=== PATIENT | male | born 1955 | race Hispanic/Latino ===

== ENCOUNTER 2017-12-24 17:41 | Inpatient (IN) | payer OTHER ==
--- NOTE | 2017-12-24 18:00 | Emergency Department Report ---
ED Abdominal Pain HPI - General Chief Complaint: Abdominal Pain Stated Complaint: ABD PAIN Time Seen by Provider: 12/24/17 18:00 Source: patient, EMS Mode of arrival: Stretcher Limitations: No Limitations - History of Present Illness Initial Comments: Patient started having sudden onset of abdominal pain since 4:00 this morning. MD Complaint: abdominal pain -: Sudden Location: diffuse Radiation: none Migration to: no migration Severity scale (0 -10): 10 Quality: sharp Consistency: constant Improves With: nothing Worsens With: nothing Associated Symptoms: nausea, vomiting - Related Data Home Medications Medication Instructions Recorded Confirmed Last Taken Hydrochlorothiazide [HCTZ] 25 mg PO QDAY 03/18/15 03/18/15 Unknown Hydroxyzine HCl [hydrOXYzine] 150 mg PO QHS 03/18/15 03/18/15 Unknown Imipramine [Tofranil] 150 mg PO QHS 03/18/15 03/18/15 Unknown Perphenazine 24 mg PO QHS 03/18/15 03/18/15 Unknown Simvastatin [Zocor TAB] 20 mg PO QHS 03/18/15 03/18/15 Unknown Temazepam [Restoril] 30 mg PO QHS PRN 03/18/15 03/18/15 Unknown glipiZIDE [Glucotrol] 10 mg PO BID 03/18/15 03/18/15 Unknown metFORMIN [Glucophage] 250 mg PO QDAY 03/18/15 03/18/15 Unknown Allergies Allergy/AdvReac Type Severity Reaction Status Date / Time esomeprazole magnesium Allergy Unknown Verified 12/24/17 18:10 [From Nexium] ibuprofen [From Motrin] Allergy Anaphylaxis Verified 12/24/17 18:10 Macrolide Antibiotics Allergy Unknown Verified 12/24/17 18:10 metformin HCl Allergy Unknown Verified 12/24/17 18:10 [From Glucophage] aspirin AdvReac Nausea Verified 12/24/17 18:10 cimetidine [From Tagamet] AdvReac Itching Verified 12/24/17 18:10 cimetidine HCl [From Tagamet] AdvReac Itching Verified 12/24/17 18:10 mirtazapine [From Remeron] AdvReac Itching Verified 12/24/17 18:10 nefazodone HCl [From Serzone] AdvReac Itching Verified 12/24/17 18:10 omeprazole [From Prilosec] AdvReac Unknown Verified 12/24/17 18:10 omeprazole magnesium AdvReac Unknown Verified 12/24/17 18:10 [From Prilosec] pantoprazole sodium AdvReac Nausea Verified 12/24/17 18:10 [From Protonix] paroxetine HCl [From Paxil] AdvReac Nausea Verified 12/24/17 18:10 quetiapine fumarate AdvReac Itching Verified 12/24/17 18:10 [From Seroquel] rabeprazole sodium AdvReac Unknown Verified 12/24/17 18:10 [From Aciphex] sertraline HCl [From Zoloft] AdvReac Itching Verified 12/24/17 18:10 Sulfa (Sulfonamide AdvReac Nausea Verified 12/24/17 18:10 Antibiotics) trazodone HCl [From Desyrel] AdvReac Itching Verified 12/24/17 18:10 venlafaxine HCl AdvReac Itching Verified 12/24/17 18:10 [From Effexor] ED Review of Systems ROS: Stated complaint: ABD PAIN Other details as noted in HPI Comment: All other systems reviewed and negative Constitutional: denies: chills, fever Eyes: denies: vision change ENT: denies: ear pain, hearing loss Respiratory: shortness of breath Cardiovascular: denies: chest pain, palpitations Endocrine: no symptoms reported Gastrointestinal: abdominal pain, nausea, vomiting. denies: diarrhea Genitourinary: denies: dysuria, frequency Musculoskeletal: denies: back pain Skin: denies: rash, change in color Neurological: denies: headache, numbness, paresthesias Psychiatric: denies: anxiety, depression Hematological/Lymphatic: denies: easy bleeding, easy bruising ED Past Medical Hx - Past Medical History Hx Hypertension: Yes Hx Diabetes: Yes Hx Kidney Stones: Yes Hx Psychiatric Treatment: Yes (DEPRESSION) Additional medical history: HIGH CHOLESTEROL - Surgical History Hx Cholecystectomy: Yes Additional Surgical History: HERNIA REPAIR X 5 - Social History Smoking Status: Current Every Day Smoker Substance Use Type: Alcohol - Medications Home Medications: Home Medications Medication Instructions Recorded Confirmed Last Taken Type Hydrochlorothiazide [HCTZ] 25 mg PO QDAY 03/18/15 03/18/15 Unknown History Hydroxyzine HCl [hydrOXYzine] 150 mg PO QHS 03/18/15 03/18/15 Unknown History Imipramine [Tofranil] 150 mg PO QHS 03/18/15 03/18/15 Unknown History Perphenazine 24 mg PO QHS 03/18/15 03/18/15 Unknown History Simvastatin [Zocor TAB] 20 mg PO QHS 03/18/15 03/18/15 Unknown History Temazepam [Restoril] 30 mg PO QHS PRN 03/18/15 03/18/15 Unknown History glipiZIDE [Glucotrol] 10 mg PO BID 03/18/15 03/18/15 Unknown History metFORMIN [Glucophage] 250 mg PO QDAY 03/18/15 03/18/15 Unknown History ED Physical Exam - General Limitations: No Limitations General appearance: alert, in distress - Head Head exam: Present: atraumatic, normocephalic, normal inspection - Eye Eye exam: Present: normal appearance, PERRL, EOMI Pupils: Present: normal accommodation - ENT ENT exam: Present: normal exam, normal orophraynx, mucous membranes dry - Neck Neck exam: Present: normal inspection, full ROM. Absent: tenderness - Respiratory Respiratory exam: Present: normal lung sounds bilaterally. Absent: chest wall tenderness - Cardiovascular Cardiovascular Exam: Present: regular rate, normal rhythm, normal heart sounds - GI/Abdominal GI/Abdominal exam: Present: distended, tenderness, guarding, rebound, rigid, hyperactive bowel sounds - Rectal Rectal exam: Present: deferred - Extremities Exam Extremities exam: Present: normal inspection, full ROM, normal capillary refill. Absent: tenderness - Back Exam Back exam: Present: normal inspection, full ROM - Neurological Exam Neurological exam: Present: alert, oriented X3, CN II-XII intact - Psychiatric Psychiatric exam: Present: normal affect, normal mood - Skin Skin exam: Present: warm, dry, intact, normal color. Absent: rash ED Course Vital Signs 12/24/17 12/24/17 12/24/17 17:45 18:00 18:16 Temperature 97.3 F L Pulse Rate 98 H 94 H Respiratory 22 29 H Rate Blood Pressure 148/86 Blood Pressure [Left] O2 Sat by Pulse 95 100 92 Oximetry 12/24/17 12/24/17 12/24/17 18:27 18:30 18:46 Temperature Pulse Rate 94 H 90 Respiratory 16 16 18 Rate Blood Pressure 146/94 Blood Pressure [Left] O2 Sat by Pulse 90 89 Oximetry 12/24/17 12/24/17 12/24/17 19:00 19:05 19:16 Temperature 98.4 F Pulse Rate 90 91 H 90 Respiratory 17 22 15 Rate Blood Pressure 169/94 169/94 Blood Pressure 169/94 [Left] O2 Sat by Pulse 88 95 90 Oximetry 12/24/17 12/24/17 12/24/17 19:30 19:46 20:00 Temperature Pulse Rate 92 H 94 H 92 H Respiratory 14 18 16 Rate Blood Pressure 164/97 164/97 160/96 Blood Pressure [Left] O2 Sat by Pulse 92 91 90 Oximetry 12/24/17 12/24/17 12/24/17 20:16 20:42 20:46 Temperature Pulse Rate 92 H 94 H 93 H Respiratory 17 17 36 H Rate Blood Pressure 160/96 160/96 160/96 Blood Pressure [Left] O2 Sat by Pulse 92 94 93 Oximetry 12/24/17 12/24/17 12/24/17 21:00 21:10 21:16 Temperature Pulse Rate 93 H 103 H Respiratory 17 18 16 Rate Blood Pressure 156/87 156/87 Blood Pressure [Left] O2 Sat by Pulse 92 95 Oximetry 12/24/17 12/24/17 12/24/17 21:30 21:40 21:46 Temperature Pulse Rate 97 H 95 H Respiratory 17 18 15 Rate Blood Pressure 170/107 170/107 Blood Pressure [Left] O2 Sat by Pulse 91 91 Oximetry 12/24/17 12/24/17 12/24/17 22:00 22:16 22:30 Temperature Pulse Rate 97 H 97 H 98 H Respiratory 17 13 18 Rate Blood Pressure 178/103 178/103 Blood Pressure [Left] O2 Sat by Pulse 91 91 89 Oximetry 12/24/17 22:46 Temperature Pulse Rate 96 H Respiratory 14 Rate Blood Pressure 164/92 Blood Pressure [Left] O2 Sat by Pulse 92 Oximetry - Reevaluation(s) Reevaluation #1: 12/24/17 22:04 I consulted the general surgeon on-call Dr. Buchanan. He wants patient to be admitted by the hospitalist, he wants an NG tube inserted and placed on low intermittent suction, and he will see the patient tomorrow morning. Patient's care was discussed with the [place] general surgeon fashion director party plan sales Dr Montemayor. He authorized admitting the patient at [facility] for further evaluation and management. Patient will be admitted to the hospital by Dr. Larson the hospitalist on-call for further evaluation and management. ED Medical Decision Making - Lab Data Result diagrams: 12/24/17 18:18 12/24/17 18:18 - EKG Data -: EKG Interpreted by Me EKG shows normal: sinus rhythm (93) Rate: normal - EKG Data When compared to previous EKG there are: previous EKG unavailable Interpretation: nonspecific ST-T wave kurt - Radiology Data Radiology results: report reviewed, image reviewed - Medical Decision Making Abdominal Pain. Nausea and Vomiting. Small bowel obstruction. Critical care attestation.: If time is entered above; I have spent that time in minutes in the direct care of this critically ill patient, excluding procedure time. ED Disposition Clinical Impression: Small bowel obstruction Nausea and vomiting Qualifiers: Vomiting type: unspecified Vomiting Intractability: non-intractable Qualified Code(s): R11.2 - Nausea with vomiting, unspecified Abdominal pain Qualifiers: Abdominal location: generalized Qualified Code(s): R10.84 - Generalized abdominal pain Leukocytosis, unspecified Qualifiers: Leukocytosis type: unspecified Qualified Code(s): D72.829 - Elevated white blood cell count, unspecified Disposition: -09 OP ADMIT IP TO THIS HOSP Is pt being admited?: Yes Does the pt Need Aspirin: No Condition: Stable Referrals: JESSICA YADAV [Other] - 3-5 Days Time of Disposition: 22:30
[2017-12-24] MEDS ORDERED: NACL 0.9% 1000 ML 1,000 ML IV ONE (18:07)
[2017-12-24] MEDS ORDERED: REGLAN IV ONE (18:08)
[2017-12-24] MEDS ORDERED: DILAUDID ONE ×2 (18:12→21:03)
[2017-12-24] MEDS ORDERED: DILAUDID IV ONE ×2 (18:13→21:04)
[2017-12-24 18:30] LABS: Hematocrit 54.3 % (35.5-45.6); Hemoglobin 18.2 gm/dl (11.8-15.2); Mean Corpuscular HGB Conc 34 % (32-34); Mean Corpuscular Hemoglobin 30 pg (28-32); Mean Corpuscular Volume 90 fl (84-94); Platelet Count 211 K/mm3 (140-440); Red Blood Count 6.01 M/mm3 (3.65-5.03); Red Cell Distribution Width 14.3 % (13.2-15.2)
[2017-12-24 18:55] LABS: Alanine Aminotransferase 23 units/L (7-56); Albumin 4.3 g/dL (3.9-5); BUN/Creatinine Ratio 11; Blood Urea Nitrogen 10 mg/dL (9-20); Calcium 10.2 mg/dL (8.4-10.2); Hemolysis Index 13; Lipase 71 units/L (13-60)
[2017-12-24 19:06] LABS: INR 0.93 (0.87-1.13); Partial Thromboplastin Time 30.1 Sec. (24.2-36.6)
--- NOTE | 2017-12-24 19:14 | XRay Report ---
FINAL REPORT EXAM: XR CHEST 1V AP HISTORY: shortness of breath TECHNIQUE: AP portable view of the chest PRIORS: None. FINDINGS: Lines, tubes, and devices: N/A Lungs and pleura: Trachea is normal in position. Lungs are clear of infiltrate, pleural effusion, vascular congestion, or pneumothorax. Cardiomediastinal silhouette: Cardiac and mediastinal silhouettes are unremarkable. Other: Bony structures are intact. IMPRESSION: No acute cardiopulmonary process seen.
--- NOTE | 2017-12-24 19:15 | XRay Report ---
FINAL REPORT EXAM: XR ABDOMEN 1V AP HISTORY: abdominal pain TECHNIQUE: Supine views of the abdomen PRIORS: None. FINDINGS: The bowel gas pattern is nonspecific. No free air is identified. Moderate stool is present in the ascending colon. Mild gaseous distention of small bowel in the right upper quadrant is noted of uncertain significance. This may be due to mild ileus. Soft tissues have no evidence for mass shadows or calcifications. Surgical clips are present in the right upper quadrant. Surgical suture wires are present in the left groin. The bony structures are intact. IMPRESSION: Mild gaseous distention of small bowel in the right upper quadrant which is doubt of uncertain significance. This may be due to mild ileus.
[2017-12-24 19:45] LABS: Band Neutrophils # (Manual) 0.2 K/mm3; Basophils % (Manual) 0 % (0.0-1.8); Eosinophils % (Manual) 0 % (0.0-4.3); Total Cells Counted 100
[2017-12-24 19:46] LABS: Anisocytosis 1+; Platelet Estimate Consistent w Auto
--- NOTE | 2017-12-24 21:13 | Cat Scan Report ---
FINAL REPORT EXAM: CT ABDOMEN PELVIS W CON HISTORY: abdominal pain TECHNIQUE: Standard enhanced CT of the abdomen and pelvis. Coronal and sagittal reconstruction was also performed. Delayed imaging through the kidneys and bladder was obtained. Contrast: 100 mL Omnipaque 300 given IV. Gastroview given as oral. PRIORS: None. FINDINGS: There is marked distention of proximal small bowel and stomach which are all fluid-filled and contain air-fluid levels. Small bowel measures up to 5.2 cm in diameter. No wall thickening is identified. A gradual transition zone is present in the anterior left upper quadrant (axial image 117, series 2) within the mid small bowel. No mass or inflammatory process is seen in this region. Within the abdomen, the liver, spleen, pancreas, adrenal glands, and kidneys are unremarkable. Gallbladder has been surgically removed. No evidence for retroperitoneal or pelvic lymphadenopathy is seen. No soft tissue mass, fluid collection, inflammatory change, or free air is seen within the abdomen or pelvis. The appendix is normal. Moderate calcification of the aorta is seen. Within the pelvis, the bladder is unremarkable. The prostate is normal. No evidence for mass or lymphadenopathy is seen in the pelvis. Sigmoid diverticulosis is noted. Surgical clips in the left groin suggests inguinal hernia repair. Images through the upper abdomen include the lung bases which demonstrates bibasilar atelectasis, left greater than right. A small hiatal hernia is noted. Bony structures show no focal abnormalities and are intact. IMPRESSION: 1. marked distention of proximal small bowel and stomach, all of which are fluid-filled and contain air-fluid levels. There is a gradual transition zone in the mid small bowel within the left anterior upper abdomen. However, no etiology is noted. No inflammatory process or obstructing mass is seen. 2. Bibasilar atelectasis 3. Small hiatal hernia
--- NOTE | 2017-12-24 23:20 | XRay Report ---
FINAL REPORT PROCEDURE: XR ABDOMEN 1V AP TECHNIQUE: Abdominal radiograph, single supine AP view. HISTORY: Post NG tube placement COMPARISON: No prior studies are available for comparison. FINDINGS: Bowel gas pattern:A few moderate to severely dilated loops of small bowel are noted in the right abdomen. Stomach is distended with air. Residual contrast is noted in bilateral collecting systems. Mild degree residual stool is noted in the right colon. Masses or calcifications:None. Bony structures:No significant abnormality. Other:Nasogastric tube is terminating at the gastroesophageal junction.. Surgical clips are noted in the right upper quadrant consistent with prior cholecystectomy. IMPRESSION: Nasogastric tube is terminating at the gastroesophageal junction. Dilated loops of small bowel are consistent with small bowel obstruction.
[2017-12-24] MEDS ORDERED: MORPHINE IV PRN (23:25)
[2017-12-24] MEDS ORDERED: ZOFRAN IV PRN (23:26)
[2017-12-24] MEDS ORDERED: TYLENOL PR PRN (23:29)
[2017-12-24] MEDS ORDERED: D50W (25GM) Syringe IV PRN (23:34)
[2017-12-24] MEDS ORDERED: NACL 0.9% 1000 ML 1,000 ML IV SCH (23:45)
[2017-12-24] MEDS ORDERED: FLAGYL 500 MG/100 ML 500 MG/100 ML BAG IV SCH (23:45)
[2017-12-25] MEDS ORDERED: APRESOLINE IV PRN (01:14)
[2017-12-25] MEDS ORDERED: ATARAX PO ONE (01:17)
[2017-12-25] MEDS ORDERED: TRILAFON PO ONE (01:21)
[2017-12-25] MEDS ORDERED: PRAVACHOL PO ONE (01:23)
[2017-12-25] MEDS: HumuLIN R SUB-Q SCH ×6 (02:14→22:57)
[2017-12-25] MEDS: RESTORIL PO PRN (02:42)
[2017-12-25] MEDS ORDERED: PROVENTIL IH PRN (04:16)
[2017-12-25] MEDS: cefTRIAXone 1 GM in NACL 0.9% 20 ML IV SCH (10:00)
[2017-12-25] MEDS: FLAGYL 500 MG/100 ML 500 MG/100 ML BAG IV SCH ×2 (10:07→20:06)
[2017-12-25 12:16] LABS: Bilirubin,Urine NEG (Negative); Blood,Urine SM (Negative); Color,Urine Yellow (Yellow); Mucus,Urine FEW /HPF; Urobilinogen,Urine < 2.0 mg/dL (<2.0)
[2017-12-25] MEDS ORDERED: NACL 0.9% 1000 ML 1,000 ML IV ONE (12:31)
--- NOTE | 2017-12-25 12:32 | Consultation ---
History of Present Illness Consult date: 12/25/17 Reason for consult: abdominal pain Requesting physician: NIKKI LOUIS Chief complaint: Abdominal pain,N/V - History of present illness History of present illness: 62yo M with recent diagnosis of left lung cancer suddenly developed abdominal pain, distention, nausea, and vomiting. Patient reports that he has never had anything like this before. He has had abdominal surgery. 10 to 15 years ago he had a laparoscopic Marvin. On a separate occasion he had a laparoscopic cholecystectomy. Neither had any complications. After the NG tube was placed, a large amount of fluid was drained. Patient reports his symptoms completely resolved. He no longer has any pain or distention. No nausea or vomiting. He feels like he can have a bowel movement this morning. He is eager to go home. Past History Past Medical History: acute NE (many years ago - pt does not remember the details), diabetes, GERD, hypertension, hyperlipidemia Past Surgical History: cholecystectomy, Other (Lap Marvin - 10-15 years ago) Social history: smoking. denies: alcohol abuse (stopped 11 months ago), prescription drug abuse, IV drug use Family history: no significant family history Medications and Allergies Allergies Allergy/AdvReac Type Severity Reaction Status Date / Time esomeprazole magnesium Allergy Unknown Verified 12/24/17 18:10 [From Nexium] ibuprofen [From Motrin] Allergy Anaphylaxis Verified 12/24/17 18:10 Macrolide Antibiotics Allergy Unknown Verified 12/24/17 18:10 metformin HCl Allergy Unknown Verified 12/24/17 18:10 [From Glucophage] aspirin AdvReac Nausea Verified 12/24/17 18:10 cimetidine [From Tagamet] AdvReac Itching Verified 12/24/17 18:10 cimetidine HCl [From Tagamet] AdvReac Itching Verified 12/24/17 18:10 ciprofloxacin AdvReac Swelling Verified 12/24/17 23:08 mirtazapine [From Remeron] AdvReac Itching Verified 12/24/17 18:10 nefazodone HCl [From Serzone] AdvReac Itching Verified 12/24/17 18:10 omeprazole [From Prilosec] AdvReac Unknown Verified 12/24/17 18:10 omeprazole magnesium AdvReac Unknown Verified 12/24/17 18:10 [From Prilosec] pantoprazole sodium AdvReac Nausea Verified 12/24/17 18:10 [From Protonix] paroxetine HCl [From Paxil] AdvReac Nausea Verified 12/24/17 18:10 quetiapine fumarate AdvReac Itching Verified 12/24/17 18:10 [From Seroquel] rabeprazole sodium AdvReac Unknown Verified 12/24/17 18:10 [From Aciphex] sertraline HCl [From Zoloft] AdvReac Itching Verified 12/24/17 18:10 Sulfa (Sulfonamide AdvReac Nausea Verified 12/24/17 18:10 Antibiotics) trazodone HCl [From Desyrel] AdvReac Itching Verified 12/24/17 18:10 varenicline [From Chantix] AdvReac Unknown Verified 12/24/17 23:08 venlafaxine HCl AdvReac Itching Verified 12/24/17 18:10 [From Effexor] Home Medications Medication Instructions Recorded Confirmed Last Taken Type Hydrochlorothiazide [HCTZ] 25 mg PO QDAY 03/18/15 03/18/15 Unknown History Hydroxyzine HCl [hydrOXYzine] 150 mg PO QHS 03/18/15 03/18/15 Unknown History Imipramine [Tofranil] 150 mg PO QHS 03/18/15 03/18/15 Unknown History RX: Perphenazine 24 mg PO QHS 03/18/15 03/18/15 Unknown History Simvastatin [Zocor TAB] 20 mg PO QHS 03/18/15 03/18/15 Unknown History Temazepam [Restoril] 30 mg PO QHS PRN 03/18/15 03/18/15 Unknown History glipiZIDE [Glucotrol] 10 mg PO BID 03/18/15 03/18/15 Unknown History metFORMIN [Glucophage] 250 mg PO QDAY 03/18/15 03/18/15 Unknown History Tamsulosin [Flomax] mg PO QDAY 12/25/17 1 Day Ago History ~12/24/17 Active Meds: Active Medications Acetaminophen (Tylenol) 650 mg PA Q4H PRN PRN Reason: For Pain/Fever/Headache Albuterol (Proventil) 2.5 mg IH Q4HRT PRN PRN Reason: Shortness Of Breath Last Admin: 12/25/17 05:21 Dose: 2.5 mg Dextrose (D50w (25gm) Syringe) 50 ml IV PRN PRN PRN Reason: Hypoglycemia Hydralazine HCl (Apresoline) 10 mg IV Q4HR PRN PRN Reason: sbp>160 Hydrochlorothiazide (Hctz) 25 mg PO QDAY [facility] Hydroxyzine HCl (Atarax) 150 mg PO QHS [facility] Ceftriaxone Sodium 1 gm/ (Sodium Chloride) 20 mls @ 20 mls/10 min IV Q24HR [facility] ; Protocol Last Admin: 12/25/17 10:00 Dose: 20 mls/10 min Sodium Chloride (Nacl 0.9% 1000 Ml) 1,000 mls @ 75 mls/hr IV DIRECT LUDY Last Admin: 12/25/17 02:13 Dose: 75 mls/hr Metronidazole (Flagyl 500 Mg/100 Ml) 500 mg in 100 mls @ 100 mls/hr IV Q8H [facility] Last Admin: 12/25/17 10:07 Dose: 100 mls/hr Insulin Human Regular (Humulin R) 0 units SUB-Q Q4HR [facility]; Protocol Last Admin: 12/25/17 10:00 Dose: 1 units Morphine Sulfate (Morphine) 2 mg IV Q3H PRN PRN Reason: Pain, Moderate (4-6) Ondansetron HCl (Zofran) 4 mg IV Q6H PRN PRN Reason: Nausea And Vomiting Perphenazine (Trilafon) 24 mg PO QHS [facility] Pravastatin Sodium (Pravachol) 40 mg PO QHS [facility] Temazepam (Restoril) 30 mg PO QHS PRN PRN Reason: Sleep Last Admin: 12/25/17 02:42 Dose: 30 mg Review of Systems - Constitutional no fever, no chills - Cardiovascular no chest pain - Respiratory no cough, no shortness of breath - Gastrointestinal abdominal pain, nausea, vomiting, change in bowel habits, dyspepsia/bloating, no diarrhea, no hematemesis, no coffee ground emesis, no BRBPR, no melena, no hematochezia, no heartburn - Genitourinary no dysuria - Integumentary no rash - Neurological no syncope Exam Vital Signs Pulse Ox 95 12/24/17 17:45 - General physical appearance Positive: no distress, no pain, other (Looks comfortable) - Eyes Positive: normal occular movement - ENT Positive: other (NGT in place with bilious output) - Respiratory Positive: normal expansion, normal respiratory effort, clear to auscultation - Cardiovascular Rhythm: regular - Extremities Extremities: No edema, normal temperature, normal color - Abdomen Abdomen: Present: soft, bowel sounds normal, surgical scars (well healed). Absent: tender, distended, guarding, rigid Hernia: none - Integumentary no rash, no growths, no abnormal pigmentation - Neurologic Neurologic: alert and oriented to time, place and person, motor strength and sensation are grossly intact - Psychiatric Psychiatric: appropriate mood/affect, intact judgment & insight Results - Labs 12/24/17 18:18 12/24/17 18:18 Abnormal lab results 12/24/17 12/24/17 12/24/17 Range/Units 18:18 18:18 18:18 WBC 18.4 H (4.5-11.0) K/mm3 RBC 6.01 H (3.65-5.03) M/mm3 Hgb 18.2 H (11.8-15.2) gm/dl Hct 54.3 H (35.5-45.6) % Seg Neuts % (Manual) 88.0 H (40.0-70.0) % Lymphocytes % (Manual) 7.0 L (13.4-35.0) % Seg Neutrophils # Man 16.2 H (1.8-7.7) K/mm3 Sodium 132 L (137-145) mmol/L Chloride 90.0 L (98-107) mmol/L Glucose 218 H (75-100) mg/dL POC Glucose (70-105) Total Creatine Kinase 22 L (55-170) units/L Total Protein 8.7 H (6.3-8.2) g/dL Lipase 71 H (13-60) units/L 12/25/17 12/25/17 12/25/17 Range/Units 00:56 05:32 10:06 WBC (4.5-11.0) K/mm3 RBC (3.65-5.03) M/mm3 Hgb (11.8-15.2) gm/dl Hct (35.5-45.6) % Seg Neuts % (Manual) (40.0-70.0) % Lymphocytes % (Manual) (13.4-35.0) % Seg Neutrophils # Man (1.8-7.7) K/mm3 Sodium (137-145) mmol/L Chloride (98-107) mmol/L Glucose (75-100) mg/dL POC Glucose 222 H 148 H 185 H (70-105) Total Creatine Kinase (55-170) units/L Total Protein (6.3-8.2) g/dL Lipase (13-60) units/L Diabetes panel 12/24/17 Range/Units 18:18 Sodium 132 L (137-145) mmol/L Potassium 4.6 (3.6-5.0) mmol/L Chloride 90.0 L (98-107) mmol/L Carbon Dioxide 23 (22-30) mmol/L BUN 10 (9-20) mg/dL Creatinine 0.9 (0.8-1.5) mg/dL Glucose 218 H (75-100) mg/dL Calcium 10.2 (8.4-10.2) mg/dL AST 18 (5-40) units/L ALT 23 (7-56) units/L Alkaline Phosphatase 90 (35-129) units/L Total Protein 8.7 H (6.3-8.2) g/dL Albumin 4.3 (3.9-5) g/dL Calcium panel 12/24/17 Range/Units 18:18 Calcium 10.2 (8.4-10.2) mg/dL Albumin 4.3 (3.9-5) g/dL Pituitary panel 12/24/17 Range/Units 18:18 Sodium 132 L (137-145) mmol/L Potassium 4.6 (3.6-5.0) mmol/L Chloride 90.0 L (98-107) mmol/L Carbon Dioxide 23 (22-30) mmol/L BUN 10 (9-20) mg/dL Creatinine 0.9 (0.8-1.5) mg/dL Glucose 218 H (75-100) mg/dL Calcium 10.2 (8.4-10.2) mg/dL Adrenal panel 12/24/17 Range/Units 18:18 Sodium 132 L (137-145) mmol/L Potassium 4.6 (3.6-5.0) mmol/L Chloride 90.0 L (98-107) mmol/L Carbon Dioxide 23 (22-30) mmol/L BUN 10 (9-20) mg/dL Creatinine 0.9 (0.8-1.5) mg/dL Glucose 218 H (75-100) mg/dL Calcium 10.2 (8.4-10.2) mg/dL Total Bilirubin 0.80 (0.1-1.2) mg/dL AST 18 (5-40) units/L ALT 23 (7-56) units/L Alkaline Phosphatase 90 (35-129) units/L Total Protein 8.7 H (6.3-8.2) g/dL Albumin 4.3 (3.9-5) g/dL - Imaging Abdominal x-ray: report reviewed CT scan - abdomen: report reviewed, image reviewed CT scan - pelvis: report reviewed, image reviewed Assessment and Plan - Patient Problems (1) Small bowel obstruction Current Visit: Yes Status: Acute Plan to address problem: Patient is stable. Patient is asymptomatic this morning. Abdominal exam is benign. He has no evidence of any distention. I would like to see the fluid in the NGT go back to a normal gastric appearance before we decide to remove it and start a diet. I will start him on ice chips for comfort. He still seems very dehydrated on clinical exam. I will order one liter of normal saline. I will also order films for the morning. I encouraged him to ambulate. All questions were answered. I will follow along in his care. Thank you for this consult. Time=45min
--- NOTE | 2017-12-25 13:34 | Progress Note ---
Assessment and Plan - Small bowel obstruction Nothing by mouth, NG tube, IV hydration X-ray and CT scan of the abdomen and pelvis reviewed. Surgical consult already ordered - H/o Left Lung cancer Recently diagnosed. - Small hiatal hernia IV Protonix Masterly inactivity - Leukocytosis last visit and wanted to small bowel obstruction Continue IV hydration [place] blood culture Comments empirical IV Flagyl and Levaquin -Diabetes mellitus Obtain an A1c level Sliding scale insulin - Hyponatremia IV normal saline - DVT prophylaxis with SCDs and heparin Subjective Date of service: 12/25/17 Principal diagnosis: small bowel obstruction, abdominal pain Interval history: Patient seen and examined. Dex has abdominal pain with nausea and vomiting. Denies any fever. No hematemesis no melena. Objective - Exam Narrative Exam: Constitutional: Well-nourished well-developed. NG Tube in Place Head: Normocephalic atraumatic Eyes: Pupils are equal round and reactive to light Nose: No enlarged turbinates, no septal deviation. Mouth: Moist mucous membranes. Neck: Supple no thyromegaly. No bruit. No JVD Heart: Regular rate and rhythm, S1-S2 abnormal. No rubs murmurs or gallop Lungs: Clear to auscultation bilaterally no rales or rhonchi Abdomen: Soft, nontender. Hyperactive Bowel sound are present. Extremities: No edema no cyanosis and no clubbing. Neuro: Alert oriented Oriented x3. No focal sensory or motor deficit. Skin: No rashes no hyperemic spots Psychiatry: Euthymic. Calm. - Constitutional Vitals: Vital Signs - 12hr 12/25/17 12/25/17 12/25/17 04:00 04:30 04:40 Temperature 98.6 F Pulse Rate 99 H Pulse Rate [ 80 83 Posterior Bilateral Throughout] Respiratory 18 Rate Respiratory 20 20 Rate [Posterior Bilateral Throughout] Blood Pressure 138/82 O2 Sat by Pulse 90 Oximetry 12/25/17 12/25/17 07:07 08:06 Temperature 99.2 F Pulse Rate 116 H 117 H Pulse Rate [ Posterior Bilateral Throughout] Respiratory 18 22 Rate Respiratory Rate [Posterior Bilateral Throughout] Blood Pressure 152/95 O2 Sat by Pulse 93 91 Oximetry - Labs CBC & Chem 7: 12/24/17 18:18 12/24/17 18:18 Labs: Abnormal lab results 05/27/18 05/27/18 05/27/18 Range/Units 18:18 18:18 18:18 WBC 18.4 H (4.5-11.0) K/mm3 RBC 6.01 H (3.65-5.03) M/mm3 Hgb 18.2 H (11.8-15.2) gm/dl Hct 54.3 H (35.5-45.6) % Seg Neuts % (Manual) 88.0 H (40.0-70.0) % Lymphocytes % (Manual) 7.0 L (13.4-35.0) % Seg Neutrophils # Man 16.2 H (1.8-7.7) K/mm3 Sodium 132 L (137-145) mmol/L Chloride 90.0 L (98-107) mmol/L Glucose 218 H (75-100) mg/dL POC Glucose (70-105) Total Creatine Kinase 22 L (55-170) units/L Total Protein 8.7 H (6.3-8.2) g/dL Lipase 71 H (13-60) units/L 12/25/17 12/25/17 12/25/17 Range/Units 00:56 05:32 10:06 WBC (4.5-11.0) K/mm3 RBC (3.65-5.03) M/mm3 Hgb (11.8-15.2) gm/dl Hct (35.5-45.6) % Seg Neuts % (Manual) (40.0-70.0) % Lymphocytes % (Manual) (13.4-35.0) % Seg Neutrophils # Man (1.8-7.7) K/mm3 Sodium (137-145) mmol/L Chloride (98-107) mmol/L Glucose (75-100) mg/dL POC Glucose 222 H 148 H 185 H (70-105) Total Creatine Kinase (55-170) units/L Total Protein (6.3-8.2) g/dL Lipase (13-60) units/L
[2017-12-25] MEDS: HCTZ PO SCH (14:32)
[2017-12-25] MEDS: NACL 0.9% 1000 ML 1,000 ML IV SCH (15:49)
[2017-12-25] MEDS ORDERED: HYDROXYZINE PO SCH (22:00)
[2017-12-25] MEDS ORDERED: NON-FORMULARY (Simvastatin 20 MG) PO SCH (22:00)
[2017-12-25] MEDS: ATIVAN IV PRN (22:12)
[2017-12-25] MEDS: ATARAX PO SCH (22:57)
[2017-12-25] MEDS: TRILAFON PO SCH (22:58)
[2017-12-25] MEDS: PRAVACHOL PO SCH (22:58)
[2017-12-26] MEDS: HumuLIN R SUB-Q SCH ×5 (01:43→19:01)
[2017-12-26] MEDS: FLAGYL 500 MG/100 ML 500 MG/100 ML BAG IV SCH ×3 (04:25→18:10)
[2017-12-26 07:54] LABS: Basophils % (Auto) 0.2 % (0.0-1.8); Eosinophils % (Auto) 0.1 % (0.0-4.3); Hematocrit 46.8 % (35.5-45.6); Hemoglobin 16.2 gm/dl (11.8-15.2); Lymphocytes # (Auto) 1.9 K/mm3 (1.2-5.4); Lymphocytes % (Auto) 13.4 % (13.4-35.0); Mean Corpuscular HGB Conc 35 % (32-34); Mean Corpuscular Hemoglobin 31 pg (28-32); Mean Corpuscular Volume 90 fl (84-94); Monocytes # (Auto) 1.4 K/mm3 (0.0-0.8); Platelet Count 189 K/mm3 (140-440); Red Blood Count 5.18 M/mm3 (3.65-5.03); Red Cell Distribution Width 14.7 % (13.2-15.2)
[2017-12-26 07:57] LABS: INR 0.99 (0.87-1.13)
[2017-12-26 08:10] LABS: Alanine Aminotransferase 36 units/L (7-56); Albumin 3.3 g/dL (3.9-5); BUN/Creatinine Ratio 20; Blood Urea Nitrogen 16 mg/dL (9-20); Calcium 8.9 mg/dL (8.4-10.2); Hemolysis Index 0
--- NOTE | 2017-12-26 08:36 | History and Physical Report ---
CHIEF COMPLAINT: Abdominal pain. HISTORY OF PRESENT ILLNESS: The patient is a 62-year-old male who said he started having abdominal pain some hours prior to presentation and abdominal pain was associated with nausea and vomiting. The patient said he had the last bowel movement 4 days prior to presentation. There is no history of fever or chills. No history of shortness of breath or chest pain. The patient was evaluated in the Emergency Room and had a CAT scan done that showed some evidence of obstruction and the patient was recommended for admission. PAST MEDICAL HISTORY: Pertinent for lung cancer, diabetes mellitus. Also, the patient has past medical history of kidney disease, depression, high cholesterol , hypertension. PAST SURGICAL HISTORY: Pertinent for cholecystectomy, hernia repair x 5. FAMILY HISTORY: Noncontributory. SOCIAL HISTORY: The patient drinks alcohol, smokes cigarettes, does not use illicit drugs. MEDICATIONS: The patient is on thiazide 25 mg by mouth daily, hydroxyzine 150 mg by mouth every night, imipramine 150 mg at bedtime, perphenazine ____ 24 mg at bedtime, Zocor 20 mg by mouth every night, temazepam 30 mg by mouth every night, Glucotrol 10 mg by mouth twice daily, metformin 250 mg by mouth daily. ALLERGIES: THE PATIENT IS ALLERGIC TO ESOMEPRAZOLE, MAGNESIUM, IBUPROFEN, MACROLIDE ANTIBIOTICS. REVIEW OF SYSTEMS: CONSTITUTIONAL: There is no fever, no chills, no diaphoresis. HEENT: There is no headache or sore throat. CARDIOVASCULAR: There is no chest pain or orthopnea. RESPIRATORY: There is no shortness of breath or cough. GASTROINTESTINAL: There is abdominal pain, nausea and vomiting, but no diarrhea. The patient has constipation. NEUROLOGICAL: There is no numbness, no dizziness, no altered mental status. MUSCULOSKELETAL: There is no joint pain or swelling. DERMATOLOGICAL: There is no skin rash or itching. GENITOURINARY: There is no dysuria, hematuria, or flank pain. Rest of system review is normal. PHYSICAL EXAMINATION: GENERAL: At the time of exam, the patient was found to be alert, oriented x 3 and in mild distress due to abdominal pain. VITAL SIGNS: At the initial time of presentation shows temperature of 97.3 degrees Fahrenheit, pulse of 98, respirations 22, blood pressure 148/86, O2 sat of 100% on room air. HEENT: Showed pupils to be equal, round, reactive to light and accommodative. Extraocular muscles are intact. NECK: Supple with no JVD or carotid bruit. CARDIOVASCULAR: Showed normal first and second heart sounds with no gallops or murmurs. RESPIRATORY: Showed good air entry on both sides of the lungs with no abnormal breath sounds. GASTROINTESTINAL: Showed abdomen to be full, firm in consistency with no organomegaly elicited and no tenderness and no rigidity. Bowel sounds are normal. NEUROLOGIC: Shows no focal deficits. MUSCULOSKELETAL: Showed no joint swelling or tenderness. DERMATOLOGIC: Showed no skin rash. GENITOURINARY: Showing no costovertebral angle tenderness. PERTINENT LABORATORY AND IMAGING STUDIES: The patient has CBC done with elevated white count of 15,400; elevated hemoglobin of 15.2; elevated hematocrit of 54.3 with CBC differential showing elevated segmented neutrophil of 88% with no significant bands. The patient's coagulation studies were unremarkable. Chemistry showed low sodium of 132, normal potassium and low chloride level of 90 with elevated glucose level of 218. Rest of chemistry was unremarkable. Troponin level came back normal. The patient's lipase level was slightly elevated with a value of 71. IMAGING STUDIES: The patient had a CT of the abdomen and pelvis done that shows air-fluid levels with marked distention of the proximal small bowel ____ filled with fluid, but no inflammatory process was seen and no obstructive mass is seen. There is finding of bilateral atelectasis and small hiatal hernia. The patient has chest x-ray done. Chest x-ray shows no acute cardiopulmonary process. The patient also had abdominal x-ray done that shows mild gaseous distention of the small bowel in the right upper quadrant which is doubt of certain significance. This may be due to ____ according to the radiologist. DIAGNOSES: 1. Small-bowel obstruction. 2. History of lung cancer. 3. Diabetes mellitus. PLAN: The patient will be admitted to medical floor and will continue intermittent low wall nasogastric suctioning that was started in the Emergency Room. The patient will be on IV ceftriaxone 1 gm daily and IV metronidazole 500 mg every 8 hours. The patient will be on IV normal saline at 75 mL an hour , will be on IV Zofran 4 mg every 6 hours as needed for nausea and vomiting and will be on Tylenol 650 mg rectally every 4 hours for fever and headache. The patient will continue general surgical consult with Dr. Buchanan, which was requested at the Emergency Room. The patient will be on IV morphine every 3 hours as needed for pain and will remain n.p.o. with the nasogastric suctioning until evaluated by the surgeon. The patient will be on Accu-Chek every 4 hours followed by low-dose sliding scale coverage using regular insulin. DVT prophylaxis will be through sequential compressive device until the patient is seen by the surgeon, in case an intervention is to be done. We will hold heparin at this time. HEATHER
--- NOTE | 2017-12-26 09:24 | Progress Note ---
Assessment and Plan - Patient Problems (1) Small bowel obstruction Current Visit: Yes Status: Acute Plan to address problem: Patient is stable. Patient is minimally symptomatic this AM with nausea. Explained again the etiology of his problem and the rationale for the management. He repeatedly kept asking for something to eat or drink. I don't think he understands completely what is going on or he is not listening. He agreed to continue with the current plan. As he is minimally symptomatic now and the xray looks better, will hold off on NGT replacement for now. If he worsens, he understands that the NGT will have to be replaced. He may have sips of clears for comfort and PO meds. Will follow along. Xray in Am. Encouraged ambulation. Still seems dehydrated, will increase IVF rate and give bolus. Time=15min Subjective Date of service: 12/26/17 Patient Reports: Positive: feels better (no pain now. Abd is normal size ), flatus, no bowel movement, nausea (mild), other (pt reports that he was frustrated last night and pulled out his NGT. Wants something to drink. No pain. Mild nausea. ). Negative: vomiting, shortness of breath Objective Vital Signs - 12hr 12/25/17 12/25/17 12/25/17 21:37 21:45 22:00 Temperature 98.9 F Pulse Rate 106 H Pulse Rate [ 104 H From Monitor] Respiratory 16 16 Rate Blood Pressure 137/72 O2 Sat by Pulse 93 91 Oximetry 12/25/17 12/26/17 22:19 09:07 Temperature Pulse Rate 104 H Pulse Rate [ From Monitor] Respiratory Rate Blood Pressure 158/91 O2 Sat by Pulse 95 Oximetry - General physical appearance no distress, no pain - Respiratory normal expansion, normal respiratory effort - Abdomen soft, not tender, bowel sounds normal, not distended, not guarding, not rigid - Integumentary no rash, no growths, no abnormal pigmentation - Psychiatric oriented to time, oriented to person, oriented to place, speech is normal, memory intact - Labs 12/26/17 07:01 12/26/17 07:01 Diabetes panel 12/26/17 Range/Units 07:01 Sodium 143 D (137-145) mmol/L Potassium 3.3 L D (3.6-5.0) mmol/L Chloride 105.1 (98-107) mmol/L Carbon Dioxide 26 (22-30) mmol/L BUN 16 (9-20) mg/dL Creatinine 0.8 (0.8-1.5) mg/dL Glucose 144 H (75-100) mg/dL Calcium 8.9 (8.4-10.2) mg/dL AST 69 H (5-40) units/L ALT 36 (7-56) units/L Alkaline Phosphatase 80 (35-129) units/L Total Protein 6.8 D (6.3-8.2) g/dL Albumin 3.3 L (3.9-5) g/dL Calcium panel 12/26/17 Range/Units 07:01 Calcium 8.9 (8.4-10.2) mg/dL Phosphorus 2.10 L (2.5-4.5) mg/dL Albumin 3.3 L (3.9-5) g/dL Pituitary panel 12/26/17 Range/Units 07:01 Sodium 143 D (137-145) mmol/L Potassium 3.3 L D (3.6-5.0) mmol/L Chloride 105.1 (98-107) mmol/L Carbon Dioxide 26 (22-30) mmol/L BUN 16 (9-20) mg/dL Creatinine 0.8 (0.8-1.5) mg/dL Glucose 144 H (75-100) mg/dL Calcium 8.9 (8.4-10.2) mg/dL Adrenal panel 12/26/17 Range/Units 07:01 Sodium 143 D (137-145) mmol/L Potassium 3.3 L D (3.6-5.0) mmol/L Chloride 105.1 (98-107) mmol/L Carbon Dioxide 26 (22-30) mmol/L BUN 16 (9-20) mg/dL Creatinine 0.8 (0.8-1.5) mg/dL Glucose 144 H (75-100) mg/dL Calcium 8.9 (8.4-10.2) mg/dL Total Bilirubin 0.70 (0.1-1.2) mg/dL AST 69 H (5-40) units/L ALT 36 (7-56) units/L Alkaline Phosphatase 80 (35-129) units/L Total Protein 6.8 D (6.3-8.2) g/dL Albumin 3.3 L (3.9-5) g/dL - Imaging Abdominal x-ray: image reviewed (saw image this AM. )
[2017-12-26] MEDS ORDERED: NACL 0.9% 1000 ML 1,000 ML IV ONE (09:26)
[2017-12-26] MEDS: HCTZ PO SCH (10:38)
[2017-12-26] MEDS: cefTRIAXone 1 GM in NACL 0.9% 20 ML IV SCH (10:40)
--- NOTE | 2017-12-26 11:29 | XRay Report ---
Single view abdomen: Compared to 12/24/17. History: Followup of bowel obstruction. Findings: Decompressed loops of small bowel. No bowel distention. Stool in colon. Impression: No evidence of small or large bowel distention.
[2017-12-26] MEDS ORDERED: K-DUR PO ONE (11:44)
[2017-12-26] MEDS: NACL 0.9% 1000 ML 1,000 ML IV SCH ×2 (12:43→20:45)
--- NOTE | 2017-12-26 13:35 | Progress Note ---
Assessment and Plan - Small bowel obstruction Nothing by mouth, monitor of NG tube, IV hydration X-ray and CT scan of the abdomen and pelvis reviewed. Surgical following, plan to start clear liquid diet from tomorrow - H/o Left Lung cancer Recently diagnosed. - Small hiatal hernia IV Protonix Masterly inactivity - Leukocytosis last visit and wanted to small bowel obstruction Continue IV hydration [place] blood culture Comments empirical IV Flagyl and Levaquin -Diabetes mellitus Obtain an A1c level Sliding scale insulin - Hyponatremia IV normal saline - DVT prophylaxis with SCDs and heparin Physical exam: Constitutional: Well-nourished well-developed. Head: Normocephalic atraumatic Eyes: Pupils are equal round and reactive to light Nose: No enlarged turbinates, no septal deviation. Mouth: Moist mucous membranes. Neck: Supple no thyromegaly. No bruit. No JVD Heart: Regular rate and rhythm, S1-S2 abnormal. No rubs murmurs or gallop Lungs: Clear to auscultation bilaterally no rales or rhonchi Abdomen: Soft, nontender. Hyperactive Bowel sound are present. Extremities: No edema no cyanosis and no clubbing. Neuro: Alert oriented Oriented x3. No focal sensory or motor deficit. Skin: No rashes no hyperemic spots Psychiatry: Euthymic. Calm. Subjective Date of service: 12/26/17 Principal diagnosis: small bowel obstruction, abdominal pain Interval history: Patient seen and examined He pulled out his NG tube Denies any abdominal pain or fullness Objective - Constitutional Vitals: Vital Signs - 12hr 12/26/17 09:07 O2 Sat by Pulse 95 Oximetry - Labs CBC & Chem 7: 12/27/17 06:54 12/27/17 06:54 Labs: Abnormal lab results 12/25/17 12/25/17 12/25/17 Range/Units 15:09 17:57 19:25 WBC (4.5-11.0) K/mm3 RBC (3.65-5.03) M/mm3 Hgb (11.8-15.2) gm/dl Hct (35.5-45.6) % MCHC (32-34) % [place] % (Auto) (0.0-7.3) % [place] # (0.0-0.8) K/mm3 Seg Neutrophils % (40.0-70.0) % Seg Neutrophils # (1.8-7.7) K/mm3 Potassium (3.6-5.0) mmol/L Glucose (75-100) mg/dL POC Glucose 155 H 154 H 156 H (70-105) Phosphorus (2.5-4.5) mg/dL AST (5-40) units/L Albumin (3.9-5) g/dL 12/25/17 12/26/17 12/26/17 Range/Units 22:16 00:32 04:15 WBC (4.5-11.0) K/mm3 RBC (3.65-5.03) M/mm3 Hgb (11.8-15.2) gm/dl Hct (35.5-45.6) % MCHC (32-34) % [place] % (Auto) (0.0-7.3) % [place] # (0.0-0.8) K/mm3 Seg Neutrophils % (40.0-70.0) % Seg Neutrophils # (1.8-7.7) K/mm3 Potassium (3.6-5.0) mmol/L Glucose (75-100) mg/dL POC Glucose 155 H 138 H 150 H (70-105) Phosphorus (2.5-4.5) mg/dL AST (5-40) units/L Albumin (3.9-5) g/dL 12/26/17 12/26/17 12/26/17 Range/Units 07:01 07:01 09:41 WBC 13.9 H (4.5-11.0) K/mm3 RBC 5.18 H (3.65-5.03) M/mm3 Hgb 16.2 H (11.8-15.2) gm/dl Hct 46.8 H D (35.5-45.6) % MCHC 35 H (32-34) % [place] % (Auto) 10.0 H (0.0-7.3) % [place] # 1.4 H (0.0-0.8) K/mm3 Seg Neutrophils % 76.3 H (40.0-70.0) % Seg Neutrophils # 10.6 H (1.8-7.7) K/mm3 Potassium 3.3 L D (3.6-5.0) mmol/L Glucose 144 H (75-100) mg/dL POC Glucose 157 H (70-105) Phosphorus 2.10 L (2.5-4.5) mg/dL AST 69 H (5-40) units/L Albumin 3.3 L (3.9-5) g/dL // Range/Units 10:22 WBC (4.5-11.0) K/mm3 RBC (3.65-5.03) M/mm3 Hgb (11.8-15.2) gm/dl Hct (35.5-45.6) % MCHC (32-34) % [place] % (Auto) (0.0-7.3) % [place] # (0.0-0.8) K/mm3 Seg Neutrophils % (40.0-70.0) % Seg Neutrophils # (1.8-7.7) K/mm3 Potassium (3.6-5.0) mmol/L Glucose (75-100) mg/dL POC Glucose 162 H (70-105) Phosphorus (2.5-4.5) mg/dL AST (5-40) units/L Albumin (3.9-5) g/dL
[2017-12-26] MEDS: XANAX PO PRN (16:06)
[2017-12-26] MEDS: TRILAFON PO SCH (21:13)
[2017-12-26] MEDS: PRAVACHOL PO SCH (21:14)
[2017-12-26] MEDS: TOFRANIL PO SCH (21:16)
[2017-12-26] MEDS: RESTORIL PO PRN (22:14)
[2017-12-27] MEDS: HumuLIN R SUB-Q SCH ×4 (01:19→20:38)
[2017-12-27] MEDS: FLAGYL 500 MG/100 ML 500 MG/100 ML BAG IV SCH ×2 (02:36→10:51)
[2017-12-27] MEDS: XANAX PO PRN ×2 (02:37→10:38)
[2017-12-27] MEDS: NACL 0.9% 1000 ML 1,000 ML IV SCH ×3 (02:43→18:29)
[2017-12-27] MEDS: ATARAX PO SCH ×2 (06:20→22:33)
[2017-12-27 08:34] LABS: Basophils % (Auto) 0.4 % (0.0-1.8); Eosinophils # (Auto) 0.1 K/mm3 (0.0-0.4); Hematocrit 47.6 % (35.5-45.6); Hemoglobin 16.1 gm/dl (11.8-15.2); Lymphocytes # (Auto) 2.4 K/mm3 (1.2-5.4); Lymphocytes % (Auto) 21.1 % (13.4-35.0); Mean Corpuscular HGB Conc 34 % (32-34); Mean Corpuscular Hemoglobin 31 pg (28-32); Mean Corpuscular Volume 91 fl (84-94); Monocytes % (Auto) 9.3 % (0.0-7.3); Platelet Count 198 K/mm3 (140-440); Red Blood Count 5.23 M/mm3 (3.65-5.03); Red Cell Distribution Width 14.5 % (13.2-15.2)
[2017-12-27 08:56] LABS: Alanine Aminotransferase 41 units/L (7-56); Albumin 3.5 g/dL (3.9-5); BUN/Creatinine Ratio 18; Blood Urea Nitrogen 14 mg/dL (9-20); Hemolysis Index 4
--- NOTE | 2017-12-27 09:44 | Progress Note ---
Assessment and Plan - Patient Problems (1) Small bowel obstruction Current Visit: Yes Status: Acute Plan to address problem: Patient is stable. Patient is asymtomatic and today's xray is not concerning. Exam is benign. Will start clears today. If tolerated, will advance tomorrow. Possible discharge tomorrow afternoon or following morning if soft diet tolerated. Will give mild laxative for excess stool seen on x-ray. X-ray in Am. Time=15min Subjective Date of service: 12/27/17 Patient Reports: Positive: feels better, flatus, no bowel movement, other (no symptoms now. Tolerated sips of clears. Wants to go home). Negative: nausea, vomiting Objective Vital Signs - 12hr 12/26/17 12/27/17 12/27/17 22:00 06:07 07:38 Temperature 98.7 F 98.7 F Pulse Rate 98 H 91 H Respiratory 16 20 Rate Respiratory 18 Rate [Abdomen] Blood Pressure 141/88 149/79 O2 Sat by Pulse 97 94 91 Oximetry - General physical appearance no distress, no pain, other (looks well) - Eyes normal occular movement - Respiratory normal expansion, normal respiratory effort - Abdomen soft, not tender, bowel sounds normal, not distended, not guarding, not rigid, surgical scars (well healed) - Integumentary no rash, no growths, no abnormal pigmentation - Psychiatric oriented to time, oriented to person, oriented to place, speech is normal, memory intact - Labs 12/27/17 06:54 12/27/17 06:54 Diabetes panel 12/27/17 Range/Units 06:54 Sodium 142 (137-145) mmol/L Potassium 3.9 (3.6-5.0) mmol/L Chloride 104.0 (98-107) mmol/L Carbon Dioxide 22 (22-30) mmol/L BUN 14 (9-20) mg/dL Creatinine 0.8 (0.8-1.5) mg/dL Glucose 105 H (75-100) mg/dL Calcium 9.0 (8.4-10.2) mg/dL AST 28 (5-40) units/L ALT 41 (7-56) units/L Alkaline Phosphatase 80 (35-129) units/L Total Protein 6.9 (6.3-8.2) g/dL Albumin 3.5 L (3.9-5) g/dL Calcium panel 12/27/17 Range/Units 06:54 Calcium 9.0 (8.4-10.2) mg/dL Albumin 3.5 L (3.9-5) g/dL Pituitary panel 12/27/17 Range/Units 06:54 Sodium 142 (137-145) mmol/L Potassium 3.9 (3.6-5.0) mmol/L Chloride 104.0 (98-107) mmol/L Carbon Dioxide 22 (22-30) mmol/L BUN 14 (9-20) mg/dL Creatinine 0.8 (0.8-1.5) mg/dL Glucose 105 H (75-100) mg/dL Calcium 9.0 (8.4-10.2) mg/dL Adrenal panel 12/27/17 Range/Units 06:54 Sodium 142 (137-145) mmol/L Potassium 3.9 (3.6-5.0) mmol/L Chloride 104.0 (98-107) mmol/L Carbon Dioxide 22 (22-30) mmol/L BUN 14 (9-20) mg/dL Creatinine 0.8 (0.8-1.5) mg/dL Glucose 105 H (75-100) mg/dL Calcium 9.0 (8.4-10.2) mg/dL Total Bilirubin 0.70 (0.1-1.2) mg/dL AST 28 (5-40) units/L ALT 41 (7-56) units/L Alkaline Phosphatase 80 (35-129) units/L Total Protein 6.9 (6.3-8.2) g/dL Albumin 3.5 L (3.9-5) g/dL - Imaging Abdominal x-ray: image reviewed
[2017-12-27] MEDS: HCTZ PO SCH (10:38)
[2017-12-27] MEDS: FLOMAX PO SCH (10:38)
[2017-12-27] MEDS: cefTRIAXone 1 GM in NACL 0.9% 20 ML IV SCH (10:47)
[2017-12-27] MEDS ORDERED: MIRALAX 3350 PO ONE (11:00)
--- NOTE | 2017-12-27 12:58 | XRay Report ---
AP ABDOMEN: HISTORY: Follow up small bowel structure in. Previous exams dating back to 12/24/17 were reviewed. The bowel gas pattern is normal or near-normal on today's exam. Dilated stomach and proximal small bowel loops have nearly resolved. There is moderate stool throughout the length of the colon. No large free air or pathologic calcifications are identified. IMPRESSION: Improvement in the partial small bowel obstruction pattern. Near normal KUB.
--- NOTE | 2017-12-27 15:13 | Progress Note ---
Assessment and Plan - Small bowel obstruction monitor off NG tube, IV hydration X-ray and CT scan of the abdomen and pelvis reviewed. Surgical following, plan to start clear liquid diet today and advance - H/o Left Lung cancer Recently diagnosed. - Small hiatal hernia IV Protonix Masterly inactivity - Leukocytosis last visit and wanted to small bowel obstruction Continue IV hydration [place] blood culture Comments empirical IV Flagyl and Levaquin -Diabetes mellitus Obtain an A1c level Sliding scale insulin - Hyponatremia IV normal saline - DVT prophylaxis with SCDs and heparin Physical exam: Constitutional: Well-nourished well-developed. Head: Normocephalic atraumatic Eyes: Pupils are equal round and reactive to light Nose: No enlarged turbinates, no septal deviation. Mouth: Moist mucous membranes. Neck: Supple no thyromegaly. No bruit. No JVD Heart: Regular rate and rhythm, S1-S2 abnormal. No rubs murmurs or gallop Lungs: Clear to auscultation bilaterally no rales or rhonchi Abdomen: Soft, nontender. Hyperactive Bowel sound are present. Extremities: No edema no cyanosis and no clubbing. Neuro: Alert oriented Oriented x3. No focal sensory or motor deficit. Skin: No rashes no hyperemic spots Psychiatry: Euthymic. Calm. Subjective Date of service: 12/27/17 Principal diagnosis: small bowel obstruction, abdominal pain Interval history: Patient seen and examined Denies any abdominal pain or fullness Started on clear liquid diet Objective - Constitutional Vitals: Vital Signs - 12hr 12/27/17 12/27/17 12/27/17 06:07 07:38 10:00 Temperature 98.7 F 98.7 F Pulse Rate 98 H 91 H Respiratory 16 20 Rate Blood Pressure 141/88 149/79 O2 Sat by Pulse 94 91 93 Oximetry 12/27/17 11:37 Temperature 97.5 F L Pulse Rate 102 H Respiratory 22 Rate Blood Pressure 151/93 O2 Sat by Pulse 98 Oximetry - Labs CBC & Chem 7: 12/28/17 07:00 12/28/17 07:00 Labs: Abnormal lab results 12/26/17 12/26/17 12/27/17 Range/Units 19:04 23:35 06:06 WBC (4.5-11.0) K/mm3 RBC (3.65-5.03) M/mm3 Hgb (11.8-15.2) gm/dl Hct (35.5-45.6) % [place] % (Auto) (0.0-7.3) % [place] # (0.0-0.8) K/mm3 Glucose (75-100) mg/dL POC Glucose 110 H 114 H (70-105) Hemoglobin A1c 6.3 H (4-6) % Albumin (3.9-5) g/dL 12/27/17 12/27/17 12/27/17 Range/Units 06:09 06:54 06:54 WBC 11.2 H (4.5-11.0) K/mm3 RBC 5.23 H (3.65-5.03) M/mm3 Hgb 16.1 H (11.8-15.2) gm/dl Hct 47.6 H (35.5-45.6) % [place] % (Auto) 9.3 H (0.0-7.3) % [place] # 1.0 H (0.0-0.8) K/mm3 Glucose 105 H (75-100) mg/dL POC Glucose 112 H (70-105) Hemoglobin A1c (4-6) % Albumin 3.5 L (3.9-5) g/dL 12/27/17 Range/Units 11:42 WBC (4.5-11.0) K/mm3 RBC (3.65-5.03) M/mm3 Hgb (11.8-15.2) gm/dl Hct (35.5-45.6) % [place] % (Auto) (0.0-7.3) % [place] # (0.0-0.8) K/mm3 Glucose (75-100) mg/dL POC Glucose 109 H (70-105) Hemoglobin A1c (4-6) % Albumin (3.9-5) g/dL
[2017-12-27] MEDS: ATIVAN IV PRN ×2 (15:51→23:47)
[2017-12-27] MEDS: TOFRANIL PO SCH (22:32)
[2017-12-27] MEDS: PRAVACHOL PO SCH (22:33)
[2017-12-27] MEDS: TRILAFON PO SCH (22:33)
[2017-12-27] MEDS: RESTORIL PO PRN (23:48)
[2017-12-28] MEDS: FLAGYL 500 MG/100 ML 500 MG/100 ML BAG IV SCH ×5 (00:41→10:53)
[2017-12-28] MEDS: HumuLIN R SUB-Q SCH ×3 (01:05→12:50)
[2017-12-28] MEDS: NACL 0.9% 1000 ML 1,000 ML IV SCH ×2 (01:53→09:38)
[2017-12-28 08:09] LABS: Basophils # (Auto) 0.1 K/mm3 (0.0-0.1); Basophils % (Auto) 0.6 % (0.0-1.8); Eosinophils # (Auto) 0.2 K/mm3 (0.0-0.4); Eosinophils % (Auto) 1.6 % (0.0-4.3); Hematocrit 43.4 % (35.5-45.6); Hemoglobin 15.1 gm/dl (11.8-15.2); Lymphocytes % (Auto) 20.1 % (13.4-35.0); Mean Corpuscular HGB Conc 35 % (32-34); Mean Corpuscular Hemoglobin 31 pg (28-32); Mean Corpuscular Volume 90 fl (84-94); Monocytes % (Auto) 9.9 % (0.0-7.3); Platelet Count 180 K/mm3 (140-440); Red Blood Count 4.81 M/mm3 (3.65-5.03); Red Cell Distribution Width 14.4 % (13.2-15.2)
[2017-12-28 08:32] LABS: Alanine Aminotransferase 37 units/L (7-56); Albumin 2.9 g/dL (3.9-5); BUN/Creatinine Ratio 12; Blood Urea Nitrogen 11 mg/dL (9-20); Calcium 8.6 mg/dL (8.4-10.2); Hemolysis Index 5
[2017-12-28] MEDS: FLOMAX PO SCH (09:31)
[2017-12-28] MEDS: HCTZ PO SCH (09:31)
[2017-12-28] MEDS: XANAX PO PRN (09:37)
[2017-12-28] MEDS: cefTRIAXone 1 GM in NACL 0.9% 20 ML IV SCH (10:48)
--- NOTE | 2017-12-28 14:38 | Discharge Summary ---
Providers - Providers Date of Admission: 12/24/17 23:17 Date of discharge: 12/28/17 Attending physician: RUSTAM YOUNG 12/24/17 21:52 Consult to Physician [CONS] Stat Comment: Consulting Provider: CHARBEL CARTER Physician Instructions: Reason For Exam: Small Bowel Obstruction 12/24/17 23:19 Consult to Physician [CONS] Routine Comment: Consulting Provider: CHARBEL CARTER Physician Instructions: Reason For Exam: INTESTINAL OBSTRUCTION Hospitalization Condition: Stable Hospital course: Discharge diagnosis: - Small bowel obstruction monitor off NG tube, IV hydration X-ray and CT scan of the abdomen and pelvis reviewed. Surgical following, plan to start clear liquid diet today and advance - H/o Left Lung cancer Recently diagnosed. - Small hiatal hernia IV Protonix Masterly inactivity - Leukocytosis last visit and wanted to small bowel obstruction Continue IV hydration [place] blood culture Comments empirical IV Flagyl and Levaquin -Diabetes mellitus Obtain an A1c level Sliding scale insulin - Hyponatremia IV normal saline - DVT prophylaxis with SCDs and heparin Physical exam: Constitutional: Well-nourished well-developed. Head: Normocephalic atraumatic Eyes: Pupils are equal round and reactive to light Nose: No enlarged turbinates, no septal deviation. Mouth: Moist mucous membranes. Neck: Supple no thyromegaly. No bruit. No JVD Heart: Regular rate and rhythm, S1-S2 abnormal. No rubs murmurs or gallop Lungs: Clear to auscultation bilaterally no rales or rhonchi Abdomen: Soft, nontender. Hyperactive Bowel sound are present. Extremities: No edema no cyanosis and no clubbing. Neuro: Alert oriented Oriented x3. No focal sensory or motor deficit. Skin: No rashes no hyperemic spots Psychiatry: Euthymic. Calm. Disposition: DC-01 TO HOME OR SELFCARE Time spent for discharge: 32 minutes Core Measure Documentation - Palliative Care Palliative Care/ Comfort Measures: Not Applicable - Core Measures Any of the following diagnoses?: none Exam - Constitutional Vitals: Temp Pulse Resp BP Pulse Ox 97.6 F 90 20 145/85 94 12/28/17 07:48 12/28/17 07:48 12/28/17 07:48 12/28/17 07:48 12/28/17 07:48 Plan Activity: advance as tolerated Weight Bearing Status: Weight Bear as Tolerated Diet: other (GI soft diet) Follow up with: JESSICA YADAV [Other] - 3-5 Days
--- NOTE | 2017-12-28 14:50 | Progress Note ---
Assessment and Plan - Patient Problems (1) Small bowel obstruction Current Visit: Yes Status: Acute Plan to address problem: Patient is stable. Patient is asymtomatic and today's xray is not concerning. Exam is benign. Tolerated clears. Advance to soft diet. If tolerated, may d/c home this afternoon. f/u prn. Please call with questions. Thank you. Time=15min Subjective Date of service: 12/28/17 Patient Reports: Positive: feels better, tolerating liquids well, flatus, bowel movement, other (wants to go home). Negative: nausea, vomiting Objective Vital Signs - 12hr 12/28/17 07:48 Temperature 97.6 F Pulse Rate 90 Respiratory 20 Rate Blood Pressure 145/85 O2 Sat by Pulse 94 Oximetry - General physical appearance no distress, no pain - Respiratory normal expansion, normal respiratory effort - Abdomen soft, not tender, bowel sounds normal, not distended, not guarding, not rigid - Labs 12/28/17 07:00 12/28/17 07:00 Diabetes panel 12/28/17 Range/Units 07:00 Sodium 137 (137-145) mmol/L Potassium 3.8 (3.6-5.0) mmol/L Chloride 103.2 (98-107) mmol/L Carbon Dioxide 25 (22-30) mmol/L BUN 11 (9-20) mg/dL Creatinine 0.9 (0.8-1.5) mg/dL Glucose 114 H (75-100) mg/dL Calcium 8.6 (8.4-10.2) mg/dL AST 26 (5-40) units/L ALT 37 (7-56) units/L Alkaline Phosphatase 65 (35-129) units/L Total Protein 5.8 L (6.3-8.2) g/dL Albumin 2.9 L (3.9-5) g/dL Calcium panel 12/28/17 Range/Units 07:00 Calcium 8.6 (8.4-10.2) mg/dL Albumin 2.9 L (3.9-5) g/dL Pituitary panel 12/28/17 Range/Units 07:00 Sodium 137 (137-145) mmol/L Potassium 3.8 (3.6-5.0) mmol/L Chloride 103.2 (98-107) mmol/L Carbon Dioxide 25 (22-30) mmol/L BUN 11 (9-20) mg/dL Creatinine 0.9 (0.8-1.5) mg/dL Glucose 114 H (75-100) mg/dL Calcium 8.6 (8.4-10.2) mg/dL Adrenal panel 12/28/17 Range/Units 07:00 Sodium 137 (137-145) mmol/L Potassium 3.8 (3.6-5.0) mmol/L Chloride 103.2 (98-107) mmol/L Carbon Dioxide 25 (22-30) mmol/L BUN 11 (9-20) mg/dL Creatinine 0.9 (0.8-1.5) mg/dL Glucose 114 H (75-100) mg/dL Calcium 8.6 (8.4-10.2) mg/dL Total Bilirubin 0.60 (0.1-1.2) mg/dL AST 26 (5-40) units/L ALT 37 (7-56) units/L Alkaline Phosphatase 65 (35-129) units/L Total Protein 5.8 L (6.3-8.2) g/dL Albumin 2.9 L (3.9-5) g/dL - Imaging Abdominal x-ray: image reviewed
[2017-12-28 16:41] VITALS: BP 150/87
--- NOTE | 2017-12-29 17:33 | History and Physical Report ---
CHIEF COMPLAINT: Abdominal pain. HISTORY OF PRESENT ILLNESS: The patient is a 62-year-old male who said he started having abdominal pain some hours prior to presentation and abdominal pain was associated with nausea and vomiting. The patient said he had the last bowel movement 4 days prior to presentation. There is no history of fever or chills. No history of shortness of breath or chest pain. The patient was evaluated in the Emergency Room and had a CAT scan done that showed some evidence of obstruction and the patient was recommended for admission. PAST MEDICAL HISTORY: Pertinent for lung cancer, diabetes mellitus. Also, the patient has past medical history of kidney disease, depression, high cholesterol, hypertension. PAST SURGICAL HISTORY: Pertinent for cholecystectomy, hernia repair x 5. FAMILY HISTORY: Noncontributory. SOCIAL HISTORY: The patient drinks alcohol, smokes cigarettes, does not use illicit drugs. MEDICATIONS: The patient is on thiazide 25 mg by mouth daily, hydroxyzine 150 mg by mouth every night, imipramine 150 mg at bedtime, perphenazine 24 mg at bedtime, Zocor 20 mg by mouth every night, temazepam 30 mg by mouth every night, Glucotrol 10 mg by mouth twice daily, metformin 250 mg by mouth daily. ALLERGIES: THE PATIENT IS ALLERGIC TO ESOMEPRAZOLE, MAGNESIUM, IBUPROFEN, MACROLIDE ANTIBIOTICS. REVIEW OF SYSTEMS: CONSTITUTIONAL: There is no fever, no chills, no diaphoresis. HEENT: There is no headache or sore throat. CARDIOVASCULAR: There is no chest pain or orthopnea. RESPIRATORY: There is no shortness of breath or cough. GASTROINTESTINAL: There is abdominal pain, nausea and vomiting, but no diarrhea. The patient has constipation. NEUROLOGICAL: There is no numbness, no dizziness, no altered mental status. MUSCULOSKELETAL: There is no joint pain or swelling. DERMATOLOGICAL: There is no skin rash or itching. GENITOURINARY: There is no dysuria, hematuria, or flank pain. Rest of system review is normal. PHYSICAL EXAMINATION: GENERAL: At the time of exam, the patient was found to be alert, oriented x 3 and in mild distress due to abdominal pain. VITAL SIGNS: At the initial time of presentation shows temperature of 97.3 degrees Fahrenheit, pulse of 98, respirations 22, blood pressure 148/86, O2 sat of 100% on room air. HEENT: Showed pupils to be equal, round, reactive to light and accommodative. Extraocular muscles are intact. NECK: Supple with no JVD or carotid bruit. CARDIOVASCULAR: Showed normal first and second heart sounds with no gallops or murmurs. RESPIRATORY: Showed good air entry on both sides of the lungs with no abnormal breath sounds. GASTROINTESTINAL: Showed abdomen to be full, firm in consistency with no organomegaly elicited and no tenderness and no rigidity. Bowel sounds are normal. NEUROLOGIC: Shows no focal deficits. MUSCULOSKELETAL: Showed no joint swelling or tenderness. DERMATOLOGIC: Showed no skin rash. GENITOURINARY: Showing no costovertebral angle tenderness. PERTINENT LABORATORY AND IMAGING STUDIES: The patient has CBC done with elevated white count of 15,400; elevated hemoglobin of 15.2; elevated hematocrit of 54.3 with CBC differential showing elevated segmented neutrophil of 88% with no significant bands. The patient's coagulation studies were unremarkable. Chemistry showed low sodium of 132, normal potassium and low chloride level of 90 with elevated glucose level of 218. Rest of chemistry was unremarkable. Troponin level came back normal. The patient's lipase level was slightly elevated with a value of 71. IMAGING STUDIES: The patient had a CT of the abdomen and pelvis done that shows air-fluid levels with marked distention of the proximal small bowel ____ that filled with fluid, but no inflammatory process was seen and no obstructive mass is seen. There is finding of bilateral atelectasis and small hiatal hernia. The patient has chest x-ray done. Chest x-ray shows no acute cardiopulmonary process. The patient also had abdominal x-ray done that shows mild gaseous distention of the small bowel in the right upper quadrant which is doubt of certain significance. This may be due to ____ according to the radiologist. DIAGNOSES: 1. Small-bowel obstruction. 2. History of lung cancer. 3. Diabetes mellitus. PLAN: The patient will be admitted to medical floor and will continue intermittent low wall nasogastric suctioning that was started in the Emergency Room. The patient will be on IV ceftriaxone 1 gm daily and IV metronidazole 500 mg every 8 hours. The patient will be on IV normal saline at 75 mL an hour, will be on IV Zofran 4 mg every 6 hours as needed for nausea and vomiting and will be on Tylenol 650 mg rectally every 4 hours for fever and headache. The patient will continue general surgical consult with Dr. Buchanan, which was requested at the Emergency Room. The patient will be on IV morphine every 3 hours as needed for pain and will remain n.p.o. with the nasogastric suctioning until evaluated by the surgeon. The patient will be on Accu-Chek every 4 hours followed by low-dose sliding scale coverage using regular insulin. DVT prophylaxis will be through sequential compressive device until the patient is seen by the surgeon, in case an intervention is to be done. We will hold heparin at this time. JOB# [id number] OCN/NTS
== END 2017-12-28 15:45 | disposition home or self-care (01) | DRG 389 ==
LOC: ED 17:41 → 3A 23:17
PROVIDERS: ADMIT Internal Medicine; ATTEND Internal Medicine
DX: K56.609 Unspecified intestinal obstruction, unspecified as to partial versus complete obstruction (principal); E87.1 Hypo-osmolality and hyponatremia; K44.9 Diaphragmatic hernia without obstruction or gangrene; D72.829 Elevated white blood cell count, unspecified; F32.9 Major depressive disorder, single episode, unspecified; F17.200 Nicotine dependence, unspecified, uncomplicated; E11.9 Type 2 diabetes mellitus without complications; Z79.899 Other long term (current) drug therapy; Z88.6 Allergy status to analgesic agent; Z88.2 Allergy status to sulfonamides; Z85.118 Personal history of other malignant neoplasm of bronchus and lung; Z87.442 Personal history of urinary calculi; Z90.49 Acquired absence of other specified parts of digestive tract; Z72.89 Other problems related to lifestyle; Z88.1 Allergy status to other antibiotic agents
CPT/HCPCS: 36415; 71045; 74018; 74177; 80053; 81001; 82550; 82962; 83036; 83690; 83735; 84100; 84484; 85007; 85025; 85610; 85730; 87040; 93005; 93010; 94640; 94760; 99285; 99406; A9270-GY; J0360; J0696; J1170; J1815; J2060; J2405; J2765; J7030; Q9967